=== PATIENT | female | born 1980 | race Caucasian/White ===

== ENCOUNTER → 2023-05-31 | Outpatient (CLI) | payer OTHER ==
--- NOTE | 2023-05-31 10:00 | US ---
EXAMINATION TYPE: US liver DATE OF EXAM: 05/31/2023 COMPARISON: NONE CLINICAL INDICATION: Female, 42 years old with history of B18.2 chronic hepatitis C; Hep C TECHNIQUE: Multiple sonographic images of the right upper quadrant are obtained. FINDINGS: EXAM MEASUREMENTS: Liver Length: 14.6 cm Gallbladder Wall: .2 cm CBD: .7 cm Right Kidney: 9.8 x 4.1 x 4.3 cm DOCK BOSS NOTES: Pancreas: Tail obscured by overlying bowel gas Liver: Heterogenous Gallbladder: Stone visualized Evidence for sonographic Padilla's sign: no CBD: wnl Right Kidney: No hydronephrosis or masses seen The visualized pancreas is unremarkable. The tail is obscured by overlying bowel gas. Liver is mildly heterogenous without focal lesion identified. No surface nodularity identified. Cholelithiasis demon strated. No wall thickening or pericholecystic fluid. 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 Common bile duct within normal limits. Right kidney is unremarkable without evidence of hydroneph rosis, mass, or nephrolithiasis. IMPRESSION: 1. No acute process. 2. Liver is mildly heterogenous without focal lesion or surface nodularity to suggest overt cirrhosis . 3. Cholelithiasis without evidence for acute cholecystitis.
== END | disposition home or self-care (01) ==
LOC: RADUSWWP 09:03
PROVIDERS: ATTEND Internal Medicine Gastroenterology
DX: B18.2 Chronic viral hepatitis C (principal); K80.20 Calculus of gallbladder without cholecystitis without obstruction
CPT/HCPCS: 76705

== ENCOUNTER → 2023-05-31 | Outpatient (CLI) | payer OTHER ==
[2023-05-31 16:16] LABS: ALT 86 U/L (8-44); AST 53 U/L (13-35); Albumin 5.3 d/dL (3.8-4.9); Albumin/Globulin Ratio 2.21 Ratio (1.60-3.17); Alkaline Phosphatase 112 U/L (41-126); BUN/Creat Ratio 27.33 Ratio (12.00-20.00); Blood Urea Nitrogen 16.4 mg/dL (9.0-27.0); Calcium 9.7 mg/dL (8.7-10.3); Carbon Dioxide 24.7 mmol/L (21.6-31.8); Chloride 95 mmol/L (96-109); Globulin 2.4 d/dL (1.6-3.3); Glucose 93 mg/dL (70-110); Sodium 132 mmol/L (135-145); Total Bilirubin 0.3 mg/dL (0.3-1.2); Total Protein 7.7 d/dL (6.2-8.2)
[2023-05-31 17:14] LABS: Basophils # (A) 0.06 X 10*3/uL (0.00-0.10); Basophils % (A) 0.8 %; Eosinophils # (A) 0.17 X 10*3/uL (0.04-0.35); Eosinophils % (A) 2.3 %; HCT 41.2 % (37.2-46.3); HGB 13.7 d/dL (12.0-15.0); Lymphocytes # (A) 1.63 X 10*3/uL (0.90-5.00); Lymphocytes % (A) 21.8 %; MCH 30.2 pg (27.0-32.0); MCHC 33.3 d/dL (32.0-37.0); MCV 90.9 FL (80.0-97.0); Mean Platelet Volume 8.8 FL (9.5-12.2); Monocytes # (A) 0.57 X 10*3/uL (0.20-1.00); Monocytes % (A) 7.6 %; NRBC Per 100 WBC 0 X 10*3/uL (0.00-0.01); Neutrophils # (A) 5.03 X 10*3/uL (1.80-7.70); Neutrophils % (A) 67.1 %; Platelet Count 241 X 10*3/uL (140-440); RBC 4.53 X 10*6/uL (4.10-5.20); RDW 12.5 % (11.5-14.5); WBC 7.49 X 10*3/uL (4.50-10.00)
[2023-05-31 17:32] LABS: Hepatitis B Surface Antigen Nonreactive
--- NOTE | 2023-06-04 08:52 | MM ---
Reason for Exam: Screening (asymptomatic). Baseline mammogram. Patient History: Menarche at age 13. First Full-Term at age 18. Last menstrual period: 05/09/2023 Risk Values: Kinjal 5 year model risk: 0.5%. NCI Lifetime model risk: 6.5%. Prior Study Comparison: Patient's first Mammogram. No prior studies available for comparison. Tissue Density: The breast tissue is heterogeneously dense. This may lower the sensitivity of mammography. Findings: Analyzed By CAD. Asymmetry right breast on MLO 2.8 cm from nipple at middle depth. This is inferior. Asymmetry left breast on MLO 2.5 cm from nipple at middle depth. This is posterior nipple line. There is no suspicious group of microcalcifications or new suspicious mass. Asymmetry right breast on MLO 2.8 cm from nipple at middle depth. This is inferior. Asymmetry left breast on MLO 2.5 cm from nipple at middle depth. This is posterior nipple line. Asymmetry left breast lateral aspect 5.1 cm to the nipple measuring 4.6 cm at posterior depth. Overall Assessment: Incomplete: need additional imaging evaluation, BI-RAD 0 Management: Diagnostic Mammogram of both breasts. Workup should include 3-D breast imaging of the bilateral breasts. [facility] will attempt to contact patient to return for supplemental views and ultrasound if indicated. Patient should continue monthly self-breast exams. A clinical breast exam by your physician is recommended on an annual basis. This exam should not preclude additional follow-up of suspicious palpable abnormalities. Note on Kinjal scores and lifetime risk: 1. A Kinjal score greater than 3% is considered moderate risk. If this is the case, consider specialist referral to assess eligibility for a risk reducing agent. 2. If overall lifetime risk for the development of breast cancer is 20% or higher, the patient may qualify for future screening with alternating mammogram and breast MRI. Electronically signed and approved by: Winston Flores DO
[2023-06-04 13:15] LABS: HCV Qualitative Result DETECTED (Not detected); HCV Quant Log 6.42 (<1.08)
== END | disposition home or self-care (01) ==
LOC: RADMAMWWP 09:05
PROVIDERS: ATTEND Family Medicine
DX: Z12.31 Encounter for screening mammogram for malignant neoplasm of breast (principal)
CPT/HCPCS: 77067; 80053; 82105; 85025; 86704; 87340; 87522; 87902

== ENCOUNTER → 2023-06-10 | Outpatient (CLI) | payer OTHER ==
--- NOTE | 2023-06-10 14:33 | USB ---
Reason for Exam: Additional evaluation requested from abnormal screening. Patient History: Menarche at age 13. First Full-Term at age 18. Risk Values: Kinjal 5 year model risk: 0.5%. NCI Lifetime model risk: 6.5%. Technique: Method: Targeted. Prior Study Comparison: 05/31/2023 Bilateral MG screening mammo w CAD, [facility]. Findings: The lateral section of the breast of the left breast, the lower section of the breast of the right breast, the axilla of both breasts and the retroareolar of both breasts were scanned. No solid or cystic masses are identified left breast. Simple appearing cyst in the right breast at the 6:00 position 3 cm from the nipple measuring 5 x 2 mm. No solid masses are seen of the right breast.. Overall Assessment: Probably benign, BI-RAD 3 Management: Diagnostic Mammogram of both breasts in 6 months. A clinical breast exam by your physician is recommended on an annual basis and results should be correlated with mammographic findings. This exam should not preclude additional follow-up of suspicious palpable abnormalities. Results were given to the patient verbally at the time of exam. Electronically signed and approved by: Sumeet Wasserman M.D. Radiologis
--- NOTE | 2023-06-11 10:02 | MM ---
Reason for Exam: Additional evaluation requested from abnormal screening. Last screening mammogram was performed less than 1 month ago. Patient History: Menarche at age 13. First Full-Term at age 18. Risk Values: Kinjal 5 year model risk: 0.5%. NCI Lifetime model risk: 6.5%. Prior Study Comparison: 05/31/2023 Bilateral MG screening mammo w CAD, [facility]. Tissue Density: The breast tissue is heterogeneously dense. This may lower the sensitivity of mammography. Findings: Analyzed By CAD. Nodular density lower outer left breast 3.4 mm from the nipple. There is also nodular density lower right breast. Bilateral ultrasound recommended. No suspicious calcifications seen. Overall Assessment: Incomplete: need additional imaging evaluation, BI-RAD 0 Management: Diagnostic Breast Ultrasound of both breasts. . Results were given to the patient verbally at the time of exam. Patient should continue monthly self-breast exams. A clinical breast exam by your physician is recommended on an annual basis. This exam should not preclude additional follow-up of suspicious palpable abnormalities. Note on Kinjal scores and lifetime risk: 1. A Kinjal score greater than 3% is considered moderate risk. If this is the case, consider specialist referral to assess eligibility for a risk reducing agent. 2. If overall lifetime risk for the development of breast cancer is 20% or higher, the patient may qualify for future screening with alternating mammogram and breast MRI. Electronically signed and approved by: Sumeet Wasserman M.D. Radiologis
== END | disposition home or self-care (01) ==
LOC: RADMAMWWP 13:19
PROVIDERS: ATTEND Family Medicine
DX: R92.8 Other abnormal and inconclusive findings on diagnostic imaging of breast (principal)
CPT/HCPCS: 77066; 76642; G0279; 77062

== ENCOUNTER → 2024-01-15 | Outpatient (CLI) | payer OTHER ==
--- NOTE | 2024-01-15 10:39 | MM ---
Reason for Exam: Follow-up at short interval from prior study. Last screening mammogram was performed 7 month(s) ago. Patient History: Menarche at age 13. First Full-Term at age 18. Risk Values: Kinjal 5 year model risk: 0.5%. NCI Lifetime model risk: 6.5%. Prior Study Comparison: 05/31/2023 Bilateral MG screening mammo w CAD, [facility]. 06/10/2023 Bilateral MG 3D work up w/cad MAYELIN, [facility]. Tissue Density: The breasts are heterogeneously dense, which may obscure small masses. Findings: Analyzed By CAD. The pattern is symmetrical. Pattern appears stable. There is a benign coarse calcification within the outer right breast. No suspicious groups of microcalcifications, spiculated or lobular masses, architectural distortion or other secondary signs of malignancy are mammographically apparent. Overall Assessment: Benign, BI-RAD 2 Management: Screening Mammogram of both breasts in 5 months. A negative mammogram report should not preclude additional follow up of suspicious palpable abnormalities. Patient should continue monthly self breast exam. A clinical breast exam by your physician is recommended on an annual basis and results should be correlated with mammographic findings. Note on Kinjal scores and lifetime risk: 1. A Kinjal score greater than 3% is considered moderate risk. If this is the case, consider specialist referral to assess eligibility for a risk reducing agent. 2. If overall lifetime risk for the development of breast cancer is 20% or higher, the patient may qualify for future screening with alternating mammogram and breast MRI. Electronically signed and approved by: Ace Collins D.O. Radiologis
== END | disposition home or self-care (01) ==
LOC: RADMAMWWP 09:54
PROVIDERS: ATTEND Family Medicine
DX: R92.333 Mammographic heterogeneous density, bilateral breasts (principal); R92.1 Mammographic calcification found on diagnostic imaging of breast
CPT/HCPCS: 77066; G0279; 77062

== ENCOUNTER 2024-04-16 15:56 | Emergency (ER) | payer OTHER ==
[2024-04-16 16:02] VITALS: RESP 20; TEMP 98.6
--- NOTE | 2024-04-16 16:26 | ED ---
General Adult HPI - General Chief complaint: Dental/Oral Stated complaint: dental pain Time Seen by Provider: 04/16/24 15:57 Source: patient Mode of arrival: ambulatory Limitations: no limitations - History of Present Illness Initial comments: Dictation was produced using [employer] dictation software. please excuse any grammatical, word or spelling errors. Chief Complaint: 43-year-old female with dental pain History of Present Illness: Patient 43-year-old female she is here today with dental pain for the last 2 to 3 days. Patient states that she was unable to follow-up with a dentist today. States that they push her appointment back approximately 1 week. Denies any fever, chills or night sweats. Patient denies any antibiotic allergies. The ROS documented in this emergency department record has been reviewed and confirmed by me. Those systems with pertinent positive or negative responses have been documented in the HPI. All other systems are other negative and/or noncontributory. - Related Data Home Medications Medication Instructions Recorded Confirmed Citalopram Hydrobromide [CeleXA] 20 mg PO DAILY 11/27/15 03/13/16 Gabapentin [Neurontin] 800 mg PO TID 11/27/15 03/13/16 OXcarbazepine [Trileptal] 600 mg PO DAILY 11/27/15 03/13/16 Pnv No.95/Ferrous Fum/Folic AC 1 each PO DAILY 03/13/16 03/13/16 [ Vitamin Tablet] Acetaminophen [Tylenol] 650 mg PO Q6H PRN 11/27/21 11/27/21 Albuterol Sulfate [Proair Hfa] 2 puff INHALATION RT-Q4H PRN 11/27/21 11/27/21 Ergocalciferol [Vitamin D2 (1250 1,250 mcg PO THFR 11/27/21 11/27/21 Mcg = 36987 Iu)] Fluticasone Propion/Salmeterol 1 puff INHALATION RT-BID 11/27/21 11/27/21 [Advair 250-50 Diskus] Gabapentin 300 mg PO Q4H 11/27/21 11/27/21 Ibuprofen [Motrin Ib] 600 mg PO Q6H PRN 11/27/21 11/27/21 OXcarbazepine 300 mg PO Q6H 11/27/21 11/27/21 ondansetron HCL [Zofran] 8 mg PO TID PRN 11/27/21 11/27/21 Previous Rx's Medication Instructions Recorded Cyclobenzaprine [Flexeril] 5 mg PO TID PRN #15 tablet 11/27/21 Ibuprofen [Motrin] 600 mg PO Q8HR PRN #30 tab 11/27/21 Amoxic-Pot Clav 875-125Mg 1 tab PO BID 10 Days #20 tab 04/16/24 [Augmentin 875-125] HYDROcodone/APAP 5-325MG [Wheaton 1 tab PO Q6HR PRN 3 Days #12 tab 04/16/24 5-325] Allergies Allergy/AdvReac Type Severity Reaction Status Date / Time diphenhydramine AdvReac insomnia Verified 02/07/23 14:11 [From Benadryl] Review of Systems ROS Statement: Those systems with pertinent positive or pertinent negative responses have been documented in the HPI. ROS Other: All systems not noted in ROS Statement are negative. Past Medical History Past Medical History: Asthma, COPD Additional Past Medical History / Comment(s): Hep C, heroin addict (clean [id number]) History of Any Multi-Drug Resistant Organisms: None Reported Past Surgical History: Section Additional Past Surgical History / Comment(s): kidney stones rectal surgery Additional Past Anesthesia/Blood Transfusion Reaction / Comment(s): no hx Past Psychological History: Anxiety, Bipolar, Depression Smoking Status: Vaper Past Alcohol Use History: None Reported, Rare Past Drug Use History: Heroin, Marijuana, None Reported - Past Family History Father Family Medical History: No Reported History General Exam - General Exam Comments Initial Comments: General: Well-appearing, nontoxic, no acute distress. Head: Normocephalic, atraumatic Eyes: PERRLA, EOMI ENT: Airway patent Chest: Nonlabored breathing Skin: No visual rash, normal skin tone Neuro: Alert and oriented 3 Musculoskeletal: No gross abnormalities Oral exam: Mnire's, no gingival abscess, palpatory pain with tapping of the lower right mandibular teeth Limitations: no limitations Course Vital Signs 04/16/24 15:58 Temperature 98.6 F Pulse Rate 86 Respiratory 20 Rate Blood Pressure 133/68 O2 Sat by Pulse 99 Oximetry Medical Decision Making - Medical Decision Making Was pt. sent in by a medical professional or institution (Dr., PA, HYDROELECTRIC STATION OPERATOR CHIEF, urgent care, hospital, or senior living...) When possible be specific @ -No Did you speak to anyone other than the patient for history (EMS, parent, family, police, friend...)? What history was obtained from this source @ -No Did you review nursing and triage notes (agree or disagree)? Why? @ -I reviewed and agree with nursing and triage notes Were old charts reviewed (outside hosp., previous admission, EMS record, old EKG, old radiological studies, urgent care reports/EKG's, senior living records)? Report findings @ -No old charts were reviewed Differential Diagnosis (chest pain, altered mental status, abdominal pain women, abdominal pain men, vaginal bleeding, musculoskeletal, weakness, fever, dyspnea, syncope, headache, dizziness, GI bleed, back pain, seizure, CVA, palpatations, mental health)? @ -Dental pain, dental abscess, dental carry, Kevin's angina EKG interpreted by me (3pts min.). @ -None done X-rays interpreted by me (1pt min.). @ -None done CT interpreted by me (1pt min.). @ -None done U/S interpreted by me (1pt. min.). @ -None done What testing was considered but not performed or refused? (CT, X-rays, U/S, labs)? Why? @ -None What meds were considered but not given or refused? Why? @ -None Was smoking cessation discussed for >3mins.? @ -No Were there social determinants of health that impacted care today? How? (Homelessness, low income, unemployed, alcoholism, drug addiction, transportation, low edu. Level, literacy, decrease access to med. care, retirement, rehab)? @ -No Was there de-escalation of care discussed even if they declined (Discuss DNR or withdrawal of care, Hospice)? DNR status @ -No What co-morbidities impacted this encounter? (DM, HTN, Smoking, COPD, CAD, Cancer, CVA, ARF, Chemo, Hep., AIDS, mental health diagnosis, sleep apnea, morbid obesity)? @ -None Was patient admitted / discharged? Hospital course, mention meds given and route, prescriptions, significant lab abnormalities, going to OR and other pertinent info. @ -43-year-old female with dental pain. Vital signs upon arrival are within acceptable limits. Patient has history of veneers and poor dentition. She does have a dentist that she can follow-up with. No obvious drainable abscess. Patient given prescription antibiotics and analgesics. Did you discuss the management of the patient with other professionals (professionals i.e. , PA, HYDROELECTRIC STATION OPERATOR CHIEF, lab, RT, psych nurse, social studies department chair, divider operator, teacher, juvenile corrections officer, sample case porter)? Give summary @ -No Was critical care preformed (if so, how long)? @ -No Undiagnosed new problem with uncertain prognosis? @ -No Drug Therapy requiring intensive monitoring for toxicity (Heparin, Nitro, Insulin, Cardizem)? @ -No Were any procedures done? @ -No Diagnosis/symptom? Acute, or Chronic, or Acute on Chronic? Uncomplicated (without systemic symptoms) or Complicated (systemic symptoms)? @ -Dental pain Side effects of treatment? @ -No Exacerbation, Progression, or Severe Exacerbation? @ -No Poses a threat to life or bodily function? How? (Chest pain, [place], [place], pneumonia, PE, COPD, DKA, ARF, appy, cholecystitis, CVA, Diverticulitis, Homicidal, Suicidal, threat to staff... and all critical care pts) @ -yes Disposition Clinical Impression: Pain, dental Disposition: HOME SELF-CARE Condition: Good Instructions (If sedation given, give patient instructions): Dental Abscess (ED) Additional Instructions: follow up with dentist Prescriptions: Amoxic-Pot Clav 875-125Mg [Augmentin 875-125] 1 tab PO BID 10 Days #20 tab HYDROcodone/APAP 5-325MG [Wheaton 5-325] 1 tab PO Q6HR PRN 3 Days #12 tab PRN Reason: Severe Pain Is patient prescribed a controlled substance at d/c from ED?: Yes If prescribed controlled substance>3 days was MAPS reviewed?: Prescribed <3 Days Referrals: Carlotta Alas MD [Primary Care Provider] - 1-2 days Time of Disposition: 16:26
[2024-04-16 16:44] VITALS: BP 130/79; PULSE 80
== END 2024-04-16 16:42 | disposition home or self-care (01) ==
LOC: EC 15:56
DX: K08.89 Other specified disorders of teeth and supporting structures (principal); F17.290 Nicotine dependence, other tobacco product, uncomplicated; Z88.8 Allergy status to other drugs, medicaments and biological substances
CPT/HCPCS: 99282

== ENCOUNTER → 2024-04-16 | Outpatient (CLI) | payer OTHER ==
--- NOTE | 2024-04-16 16:36 | US ---
EXAMINATION TYPE: US kidneys/renal and bladder DATE OF EXAM: 04/16/2024 COMPARISON: NONE CLINICAL INDICATION: Female, 43 years old with history of E87.1 HYPONATREMIA; EXAM MEASUREMENTS: Right Kidney: 10.8 x 4.8 x 5.7 cm Left Kidney: 10.1 x 4.9 x 5.2 cm Right Kidney: visualized portions wnl, inferior pole limited by overlying bowel gas Left Kidney: visualized portions wnl, superior pole limited by overlying bowel gas Bladder: wnl Bilateral Jets seen: yes There is no evidence for hydronephrosis at this point in time. No nephrolithiasis is seen. No tavo s are identified. The urinary bladder is anechoic. Bilateral ureteral jets are seen. IMPRESSION: 1. Unremarkable renal ultrasound
== END | disposition home or self-care (01) ==
LOC: RADUSWWP 15:31
PROVIDERS: ATTEND Family Medicine
DX: E87.1 Hypo-osmolality and hyponatremia (principal)
CPT/HCPCS: 76770

== ENCOUNTER → 2025-02-02 | Outpatient (CLI) | payer BC ==
[2025-02-02 15:07] LABS: Basophils # (A) 0.05 X 10*3/uL (0.00-0.10); Basophils % (A) 0.7 %; Eosinophils % (A) 1.3 %; HCT 42.3 % (37.2-46.3); HGB 14.1 g/dL (12.0-15.0); Lymphocytes # (A) 1.58 X 10*3/uL (0.90-5.00); Lymphocytes % (A) 21.2 %; MCH 30.1 pg (27.0-32.0); MCHC 33.3 g/dL (32.0-37.0); MCV 90.2 FL (80.0-97.0); Mean Platelet Volume 8.9 FL (9.5-12.2); Monocytes # (A) 0.43 X 10*3/uL (0.20-1.00); Monocytes % (A) 5.8 %; NRBC Per 100 WBC 0 X 10*3/uL (0.00-0.01); Neutrophils # (A) 5.25 X 10*3/uL (1.80-7.70); Neutrophils % (A) 70.3 %; Platelet Count 320 X 10*3/uL (140-440); RBC 4.69 X 10*6/uL (4.10-5.20); RDW 12.2 % (11.5-14.5); WBC 7.46 X 10*3/uL (4.50-10.00)
[2025-02-02 15:27] LABS: ALT 23 U/L (8-44); AST 20 U/L (13-35); Albumin 4.4 g/dL (3.8-4.9); Albumin/Globulin Ratio 1.91 Ratio (1.60-3.17); Alkaline Phosphatase 99 U/L (41-126); BUN/Creat Ratio 18.83 Ratio (12.00-20.00); Blood Urea Nitrogen 11.3 mg/dL (9.0-27.0); Calcium 9.5 mg/dL (8.7-10.3); Carbon Dioxide 27.6 mmol/L (21.6-31.8); Chloride 98 mmol/L (96-109); Globulin 2.3 g/dL (1.6-3.3); Glucose 111 mg/dL (70-110); LDL Cholesterol,Calculated 110.9 mg/dL (0.0-131.0); Potassium 4.4 mmol/L (3.5-5.5); Sodium 136 mmol/L (135-145); Total Bilirubin <0.2 mg/dL (0.3-1.2); Total Protein 6.7 g/dL (6.2-8.2)
[2025-02-02 18:47] LABS: Urine Alcohol Negative (Negative); Urine Barbiturate Negative (Negative); Urine Cocaine Negative (Negative); Urine Methadone Negative (Negative); Urine Opiates Negative (Negative); Urine Phencyclidine Negative (Negative)
== END | disposition home or self-care (01) ==
LOC: LABWHC1 09:54
PROVIDERS: ATTEND Nurse Practitioner Psychiatric/Mental Health
DX: Z51.81 Encounter for therapeutic drug level monitoring (principal); I10 Essential (primary) hypertension; D51.9 Vitamin B12 deficiency anemia, unspecified; E78.5 Hyperlipidemia, unspecified; E03.9 Hypothyroidism, unspecified; E55.9 Vitamin D deficiency, unspecified; E11.9 Type 2 diabetes mellitus without complications; Z79.899 Other long term (current) drug therapy
CPT/HCPCS: 36415; 80053; 80061; 80306; 82306; 82607; 83036; 84443; 84481; 85025